=== PATIENT | female | born 1995 | race Hispanic/Latino ===

== ENCOUNTER 2020-08-30 00:17 | Emergency (ER) | payer MEDICAID, OTHER ==
[2020-08-30] MEDS ORDERED: ONDANSETRON 4 MG ODT TAB PO ONE (01:21)
[2020-08-30] MEDS ORDERED: HYDROcodone/ACETAMINOPHEN 5-325 MG TAB PO ONE (01:21)
[2020-08-30] MEDS ORDERED: IBUPROFEN 600 MG TAB PO ONE (01:21)
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
[2020-08-30 04:29] VITALS: BP 119/79
== END 2020-08-30 03:55 | disposition home or self-care (01) ==
LOC: ED 00:17
DX: S43.492A Other sprain of left shoulder joint, initial encounter (principal); M62.838 Other muscle spasm; I10 Essential (primary) hypertension; F41.9 Anxiety disorder, unspecified; F32.9 Major depressive disorder, single episode, unspecified; J45.909 Unspecified asthma, uncomplicated; Z98.890 Other specified postprocedural states; Z79.899 Other long term (current) drug therapy; V49.49XA Driver injured in collision with other motor vehicles in traffic accident, initial encounter; Y92.410 Unspecified street and highway as the place of occurrence of the external cause; Y93.89 Activity, other specified; Y99.8 Other external cause status
CPT/HCPCS: 72125; 72128; Q0162